=== PATIENT | male | born 1940 | race Asian ===

== ENCOUNTER 2017-08-31 07:20 | Emergency (ER) | payer MEDICARE, MEDICAID ==
[~2017-08-31] VITALS: Ht 157.5 cm; Wt 59.1 kg
[~2017-08-31 07:20] MED LIST: ASPI-825 PO; ATOR10TA84 PO; NORVASC PO; TOPROL PO
[2017-08-31] MEDS ORDERED: TRIA60LO12 TP (07:36)
[2017-08-31] MEDS ORDERED: DIPH25CA48 PO (07:36)
[2017-08-31] MEDS ORDERED: AMLO-512 PO (07:36)
[2017-08-31] MEDS ORDERED: METF500T4 PO (07:36)
[2017-08-31] MEDS ORDERED: FAMO20 PO (07:36)
[2017-08-31] MEDS ORDERED: VALS160T2 PO (07:36)
[2017-08-31] MEDS ORDERED: LORA10TA7 PO (07:36)
[2017-08-31] MEDS ORDERED: CLOP75 PO (07:36)
[2017-08-31] MEDS ORDERED: METO25 PO (07:36)
[2017-08-31 08:28] LABS: BASOPHILS % (AUTO) 0.3 % (0.0-2.0); EOSINOPHILS % (AUTO) 4.9 % (1.0-6.0); HEMATOCRIT 43.1 % (41-53); HEMOGLOBIN 14.9 g/dL (13.5-17.5); LYMPHOCYTES # (AUTO) 0.9 K/uL (1.0-4.8); MEAN CORPUSCULAR HEMOGLOBIN 30.8 pg (26.0-34.0); MEAN CORPUSCULAR HGB CONC 34.5 G/dL (31.0-37.0); MEAN CORPUSCULAR VOLUME 89 fL (80-100); MONOCYTES # (AUTO) 0.4 K/uL (0.1-1.0); MONOCYTES % (AUTO) 8.3 % (2.0-9.0); NEUTROPHILS # (AUTO) 3.7 K/uL (1.8-7.7); NEUTROPHILS % (AUTO) 69.5 % (40.0-70.0); PLATELET COUNT (AUTO) 267 K/uL (150-450); RED BLOOD CELL COUNT(AUTO) 4.82 MIL/uL (4.50-5.90); RED CELL DISTRIBUTION WIDTH 14.2 % (11.5-14.5)
[2017-08-31 08:38] LABS: ANION GAP 9 mmol/L (8-16); CALCIUM, TOTAL 8.6 mg/dL (8.8-10.5); CARBON DIOXIDE 28 mmol/L (22-29); CHLORIDE 95 mmol/L (98-107); CREATININE 1.13 mg/dL (0.60-1.30); GLOMERULAR FILTR. RATE CALC > 60 mL/min (>60); GLUCOSE,RANDOM 121 mg/dL (70-110); SODIUM SERUM 132 mmol/L (136-145); UREA NITROGEN, BLOOD 8 mg/dL (7-18)
[2017-08-31 08:44] LABS: ALANINE AMINOTRANSFERASE 46 U/L (12-78); ALBUMIN 4.2 g/dL (3.4-5.0); ALKALINE PHOSPHATASE 65 U/L (46-116); ASPARTATE AMINOTRANSFERASE 27 U/L (15-37); BILIRUBIN,TOTAL 0.5 mg/dL (0.1-1.0); TOTAL PROTEIN, SERUM 7.9 g/dL (6.4-8.2)
[2017-08-31 09:40] VITALS: BP 176/60
== END 2017-08-31 09:41 | disposition home or self-care (01) ==
LOC: EMS 07:22
DX: L50.9 Urticaria, unspecified (principal); K21.9 Gastro-esophageal reflux disease without esophagitis; I10 Essential (primary) hypertension; Z79.82 Long term (current) use of aspirin
CPT/HCPCS: 99284

== ENCOUNTER 2017-09-22 04:00 | Inpatient (IN) | payer MEDICARE, MEDICAID ==
[~2017-09-22] VITALS: Ht 160 cm; Wt 61.5 kg
[~2017-09-22 04:00] MED LIST changes: +AMLO-512 PO; +CLOP75 PO; +DIPH25CA48 PO; +FAMO20 PO; +LORA10TA7 PO; +METF500T6 PO; +METO25 PO; -NORVASC PO; -TOPROL PO; +TRIA60LO12 TP; +VALS160T2 PO
[2017-09-22] MEDS ORDERED: SODIUM CHLORIDE 0.9% 1,000 ML IV ONE ×2 (05:00→06:00)
[2017-09-22] MEDS ORDERED: KETOROLAC TROMETHAMINE 30 MG/ML VIAL IVP ONE (05:00)
[2017-09-22] MEDS ORDERED: METOCLOPRAMIDE HCL 5 MG/ML 2 ML VIAL IVP ONE (05:00)
[2017-09-22 05:37] LABS: ALANINE AMINOTRANSFERASE 43 U/L (12-78); ALKALINE PHOSPHATASE 82 U/L (46-116); ANION GAP 9 mmol/L (8-16); ASPARTATE AMINOTRANSFERASE 25 U/L (15-37); BILIRUBIN,TOTAL 0.7 mg/dL (0.1-1.0); CALCIUM, TOTAL 8.2 mg/dL (8.8-10.5); CARBON DIOXIDE 25 mmol/L (22-29); CHLORIDE 86 mmol/L (98-107); CREATININE 0.96 mg/dL (0.60-1.30); GLOMERULAR FILTR. RATE CALC > 60 mL/min (>60); GLUCOSE,RANDOM 148 mg/dL (70-110); POTASSIUM 4.1 mmol/L (3.5-5.1); TOTAL PROTEIN, SERUM 7.2 g/dL (6.4-8.2); UREA NITROGEN, BLOOD 7 mg/dL (7-18)
[2017-09-22 05:39] LABS: BASOPHILS % (AUTO) 0.3 % (0.0-2.0); EOSINOPHILS % (AUTO) 0.1 % (1.0-6.0); HEMATOCRIT 39.9 % (41-53); HEMOGLOBIN 14.2 g/dL (13.5-17.5); LYMPHOCYTES # (AUTO) 0.5 K/uL (1.0-4.8); LYMPHOCYTES % (AUTO) 5.3 % (22.0-44.0); MEAN CORPUSCULAR HEMOGLOBIN 31.4 pg (26.0-34.0); MEAN CORPUSCULAR HGB CONC 35.7 G/dL (31.0-37.0); MEAN CORPUSCULAR VOLUME 88 fL (80-100); MONOCYTES # (AUTO) 0.7 K/uL (0.1-1.0); MONOCYTES % (AUTO) 7.5 % (2.0-9.0); NEUTROPHILS # (AUTO) 8.3 K/uL (1.8-7.7); PLATELET COUNT (AUTO) 234 K/uL (150-450); RED BLOOD CELL COUNT(AUTO) 4.54 MIL/uL (4.50-5.90); RED CELL DISTRIBUTION WIDTH 13.7 % (11.5-14.5)
[2017-09-22 05:41] LABS: SODIUM SERUM 120 mmol/L (136-145)
[2017-09-22 05:42] LABS: B-TYPE NATRIURETIC PEPTIDE 18 pg/mL (0-100)
[2017-09-22 05:44] LABS: NEUTROPHILS % (AUTO) 86.8 % (40.0-70.0)
[2017-09-22] MEDS ORDERED: ONDANSETRON HCL 4 MG/2 ML VIAL IVP ONE (06:00)
[2017-09-22 06:53] LABS: APPEARANCE,URINE CLEAR (CLEAR)
[2017-09-22 06:54] LABS: BILIRUBIN,URINE NEGATIVE (NEGATIVE); GLUCOSE, URINE (UA) NEGATIVE (NEGATIVE); KETONES,URINE NEGATIVE (NEGATIVE); LEUKOCYTE ESTERASE ,URINE NEGATIVE (NEGATIVE); NITRATE,URINE NEGATIVE (NEGATIVE); OCCULT BLOOD,URINE TRACE-LYSE (NEGATIVE); PH,URINE 7.5 (5.0-8.0); PROTEIN,URINE NEGATIVE (NEGATIVE); UROBILINOGEN,URINE 0.2 mg/dL (<=1.0)
[2017-09-22 07:26] LABS: BACTERIA,URINE Rare /HPF (None Seen); SQUAMOUS EPITHELIAL CELL,UR Few /LPF (None Seen); WBC,URINE None Seen /HPF (0-5)
[2017-09-22 09:07] VITALS: BP 158/79
[2017-09-22] MEDS ORDERED: DiphenhydrAMINE HCL 25 MG CAPSULE PO PRN (09:45)
[2017-09-22 11:00] VITALS: BP 143/63
[2017-09-22 12:12] LABS: ANION GAP 7 mmol/L (8-16); CALCIUM, TOTAL 7.7 mg/dL (8.8-10.5); CARBON DIOXIDE 26 mmol/L (22-29); CHLORIDE 89 mmol/L (98-107); CREATININE 0.89 mg/dL (0.60-1.30); GLOMERULAR FILTR. RATE CALC > 60 mL/min (>60); GLUCOSE,RANDOM 124 mg/dL (70-110); POTASSIUM 4.2 mmol/L (3.5-5.1); UREA NITROGEN, BLOOD 5 mg/dL (7-18)
[2017-09-22] MEDS: SODIUM CHLORIDE 1 GM TABLET PO SCH ×3 (12:15→23:40)
[2017-09-22 12:17] LABS: SODIUM SERUM 122 mmol/L (136-145)
[2017-09-22 12:39] LABS: FREE T4 (FREE THYROXINE) 1.04 ng/dL (0.76-1.46); OSMOLALITY 257 mOS/kg (270-310); THYROID STIMULATING HORMONE 1.29 uIU/mL (0.36-3.74)
[2017-09-22 15:00] VITALS: BP 145/74
[2017-09-22 15:40] LABS: CREATININE,URINE RANDOM 76.6 mg/dL (30.0-125.0)
[2017-09-22 19:02] LABS: ANION GAP 9 mmol/L (8-16); CALCIUM, TOTAL 7.9 mg/dL (8.8-10.5); CARBON DIOXIDE 24 mmol/L (22-29); CHLORIDE 92 mmol/L (98-107); CREATININE 0.83 mg/dL (0.60-1.30); GLOMERULAR FILTR. RATE CALC > 60 mL/min (>60); GLUCOSE,RANDOM 133 mg/dL (70-110); POTASSIUM 3.9 mmol/L (3.5-5.1); SODIUM SERUM 125 mmol/L (136-145); UREA NITROGEN, BLOOD 7 mg/dL (7-18)
[2017-09-22 19:03] LABS: FREE T4 (FREE THYROXINE) 1.08 ng/dL (0.76-1.46); THYROID STIMULATING HORMONE 1.32 uIU/mL (0.36-3.74)
[2017-09-22 19:55] VITALS: BP 143/68
[2017-09-22] MEDS: METOPROLOL TARTRATE 25 MG TABLET PO SCH (20:52)
[2017-09-22 23:20] VITALS: BP 118/54
[2017-09-23 03:35] VITALS: BP 135/59
[2017-09-23] MEDS: SODIUM CHLORIDE 1 GM TABLET PO SCH ×4 (06:02→23:24)
[2017-09-23 06:17] LABS: ANION GAP 6 mmol/L (8-16); CARBON DIOXIDE 27 mmol/L (22-29); CHLORIDE 96 mmol/L (98-107); CREATININE 0.93 mg/dL (0.60-1.30); GLOMERULAR FILTR. RATE CALC > 60 mL/min (>60); GLUCOSE,RANDOM 97 mg/dL (70-110); POTASSIUM 3.9 mmol/L (3.5-5.1); SODIUM SERUM 129 mmol/L (136-145); UREA NITROGEN, BLOOD 9 mg/dL (7-18)
[2017-09-23 07:02] VITALS: BP 132/65
[2017-09-23] MEDS: METOPROLOL TARTRATE 25 MG TABLET PO SCH ×2 (07:51→20:07)
[2017-09-23] MEDS: VALSARTAN 160 MG TABLET PO SCH (07:51)
[2017-09-23] MEDS: LORATADINE 10 MG TABLET PO SCH (07:51)
[2017-09-23] MEDS: MetFORMIN HCL 500 MG TABLET PO SCH (07:51)
[2017-09-23] MEDS: ASPIRIN 81 MG CHEWABLE TABLET PO SCH (07:51)
[2017-09-23] MEDS: ATORVASTATIN CALCIUM 10 MG TABLET PO SCH (07:51)
[2017-09-23] MEDS: CLOPIDOGREL BISULFATE 75 MG TABLET PO SCH (07:52)
[2017-09-23] MEDS: AmLODIPine BESYLATE 10 MG TABLET PO SCH (07:52)
[2017-09-23] MEDS: FAMOTIDINE 20 MG TABLET PO SCH (07:52)
[2017-09-23 12:00] VITALS: BP 135/63
[2017-09-23 15:22] VITALS: BP 151/69
[2017-09-23 19:00] VITALS: BP 132/67
[2017-09-23 21:02] LABS: GLUCOMETER DEV NAME(LOC) 6N 2D; GLUCOSE,POINT OF CARE 100 MG/DL (70-110)
[2017-09-23 23:20] VITALS: BP 129/53
[2017-09-24 04:53] VITALS: BP 144/62
[2017-09-24] MEDS: SODIUM CHLORIDE 1 GM TABLET PO SCH (04:56)
[2017-09-24 07:21] VITALS: BP 129/56
[2017-09-24 07:55] LABS: ANION GAP 8 mmol/L (8-16); CARBON DIOXIDE 25 mmol/L (22-29); CHLORIDE 100 mmol/L (98-107); CREATININE 0.88 mg/dL (0.60-1.30); GLOMERULAR FILTR. RATE CALC > 60 mL/min (>60); GLUCOSE,RANDOM 116 mg/dL (70-110); POTASSIUM 3.8 mmol/L (3.5-5.1); SODIUM SERUM 133 mmol/L (136-145); UREA NITROGEN, BLOOD 10 mg/dL (7-18)
[2017-09-24] MEDS: MetFORMIN HCL 500 MG TABLET PO SCH (09:06)
[2017-09-24] MEDS: CLOPIDOGREL BISULFATE 75 MG TABLET PO SCH (09:06)
[2017-09-24] MEDS: ASPIRIN 81 MG CHEWABLE TABLET PO SCH (09:06)
[2017-09-24] MEDS: METOPROLOL TARTRATE 25 MG TABLET PO SCH (09:06)
[2017-09-24] MEDS: LORATADINE 10 MG TABLET PO SCH (09:06)
[2017-09-24] MEDS: AmLODIPine BESYLATE 10 MG TABLET PO SCH (09:06)
[2017-09-24] MEDS: FAMOTIDINE 20 MG TABLET PO SCH (09:06)
[2017-09-24] MEDS: VALSARTAN 160 MG TABLET PO SCH (09:06)
[2017-09-24] MEDS: ATORVASTATIN CALCIUM 10 MG TABLET PO SCH (09:06)
== END 2017-09-24 11:45 | disposition home or self-care (01) | DRG 645 ==
LOC: EMS 04:01 → 6N 08:01
PROVIDERS: ADMIT Hospitalist; ATTEND Hospitalist
DX: E22.2 Syndrome of inappropriate secretion of antidiuretic hormone (principal); E11.9 Type 2 diabetes mellitus without complications; K21.9 Gastro-esophageal reflux disease without esophagitis; I25.10 Atherosclerotic heart disease of native coronary artery without angina pectoris; E78.5 Hyperlipidemia, unspecified; I10 Essential (primary) hypertension; G43.909 Migraine, unspecified, not intractable, without status migrainosus; Z83.3 Family history of diabetes mellitus; Z82.49 Family history of ischemic heart disease and other diseases of the circulatory system; Z95.5 Presence of coronary angioplasty implant and graft
CPT/HCPCS: 70450; 82570; 83930; 83935; 84300; 84439; 84443; 93005; 96374; 96375; 99285; J1885; J2405; J2765; J7030

== ENCOUNTER 2017-11-19 14:06 | Inpatient (IN) | payer MEDICARE, MEDICAID ==
[~2017-11-19] VITALS: Ht 157.5 cm; Wt 59.8 kg
[2017-11-19 15:51] LABS: BASOPHILS % (AUTO) 0.4 % (0.0-2.0); EOSINOPHILS % (AUTO) 0.1 % (1.0-6.0); HEMATOCRIT 41.2 % (41-53); HEMOGLOBIN 14.5 g/dL (13.5-17.5); LYMPHOCYTES # (AUTO) 1.1 K/uL (1.0-4.8); MEAN CORPUSCULAR HEMOGLOBIN 31.2 pg (26.0-34.0); MEAN CORPUSCULAR HGB CONC 35.1 G/dL (31.0-37.0); MEAN CORPUSCULAR VOLUME 89 fL (80-100); MONOCYTES # (AUTO) 0.6 K/uL (0.1-1.0); MONOCYTES % (AUTO) 7.5 % (2.0-9.0); NEUTROPHILS # (AUTO) 5.8 K/uL (1.8-7.7); PLATELET COUNT (AUTO) 295 K/uL (150-450); RED BLOOD CELL COUNT(AUTO) 4.63 MIL/uL (4.50-5.90); RED CELL DISTRIBUTION WIDTH 13.7 % (11.5-14.5)
[2017-11-19 16:00] LABS: ANION GAP 8 mmol/L (8-16); CALCIUM, TOTAL 8.9 mg/dL (8.8-10.5); CARBON DIOXIDE 25 mmol/L (22-29); CHLORIDE 93 mmol/L (98-107); CREATININE 0.91 mg/dL (0.60-1.30); GLOMERULAR FILTR. RATE CALC > 60 mL/min (>60); GLUCOSE,RANDOM 123 mg/dL (70-110); SODIUM SERUM 126 mmol/L (136-145); UREA NITROGEN, BLOOD 5 mg/dL (7-18)
[2017-11-19 16:04] LABS: ALANINE AMINOTRANSFERASE 36 U/L (12-78); ALBUMIN 4.3 g/dL (3.4-5.0); ALKALINE PHOSPHATASE 86 U/L (46-116); ASPARTATE AMINOTRANSFERASE 22 U/L (15-37); BILIRUBIN,TOTAL 0.5 mg/dL (0.1-1.0); TOTAL PROTEIN, SERUM 7.6 g/dL (6.4-8.2)
[2017-11-19 16:23] LABS: PLATELET MORPHOLOGY COMMENT NORMAL
[2017-11-19] MEDS ORDERED: 0.9% SODIUM CHLORIDE 10 ML SYRINGE IVP PRN (19:00)
[2017-11-19] MEDS ORDERED: ONDANSETRON HCL 4 MG/2 ML VIAL IVP PRN (19:00)
[2017-11-19] MEDS ORDERED: ACETAMINOPHEN 325 MG TABLET PO PRN (19:00)
[2017-11-19 22:02] VITALS: BP 179/78
[2017-11-20] MEDS ORDERED: INSULIN LISPRO 100 UNITS/ML SQ PRN
[2017-11-20] MEDS ORDERED: DEXTROSE 50%-WATER 25 GM/50 ML SYRINGE IVP PRN
[2017-11-20] MEDS ORDERED: ONDANSETRON HCL 4 MG/2 ML VIAL IVP PRN
[2017-11-20] MEDS ORDERED: DiphenhydrAMINE HCL 25 MG CAPSULE PO PRN
[2017-11-20 05:00] VITALS: BP 146/74
[2017-11-20 06:13] LABS: GLUCOMETER DEV NAME(LOC) 6N 2D; GLUCOSE,POINT OF CARE 110 MG/DL (70-110)
[2017-11-20 06:36] LABS: BASOPHILS % (AUTO) 1.3 % (0.0-2.0); EOSINOPHILS % (AUTO) 1.7 % (1.0-6.0); HEMATOCRIT 37.9 % (41-53); HEMOGLOBIN 13.7 g/dL (13.5-17.5); LYMPHOCYTES # (AUTO) 0.9 K/uL (1.0-4.8); LYMPHOCYTES % (AUTO) 20.2 % (22.0-44.0); MEAN CORPUSCULAR HGB CONC 36.3 G/dL (31.0-37.0); MEAN CORPUSCULAR VOLUME 88 fL (80-100); MONOCYTES # (AUTO) 0.4 K/uL (0.1-1.0); NEUTROPHILS # (AUTO) 3.1 K/uL (1.8-7.7); NEUTROPHILS % (AUTO) 67.8 % (40.0-70.0); PLATELET COUNT (AUTO) 242 K/uL (150-450); RED CELL DISTRIBUTION WIDTH 13.7 % (11.5-14.5)
[2017-11-20 07:01] LABS: HEMOGLOBIN A1C 6.4 % (4.5-6.2)
[2017-11-20 07:37] VITALS: BP 123/55
[2017-11-20 07:51] LABS: ALANINE AMINOTRANSFERASE 35 U/L (12-78); ALBUMIN 3.7 g/dL (3.4-5.0); ALKALINE PHOSPHATASE 71 U/L (46-116); ANION GAP 5 mmol/L (8-16); ASPARTATE AMINOTRANSFERASE 18 U/L (15-37); BILIRUBIN,TOTAL 0.8 mg/dL (0.1-1.0); CALCIUM, TOTAL 8.6 mg/dL (8.8-10.5); CARBON DIOXIDE 27 mmol/L (22-29); CHLORIDE 95 mmol/L (98-107); CHOL/HDL RATIO 2.4 (4.2-7.3); CHOLESTEROL 106 mg/dL (131-200); CREATININE 0.91 mg/dL (0.60-1.30); GLUCOSE,RANDOM 107 mg/dL (70-110); HDL CHOLESTEROL 45 mg/dL (40-60); LDL CHOL (CALC.) 46 mg/dL (0-130); SODIUM SERUM 127 mmol/L (136-145); TOTAL PROTEIN, SERUM 6.6 g/dL (6.4-8.2); TRIGLYCERIDES 73 mg/dL (15-150); UREA NITROGEN, BLOOD 7 mg/dL (7-18)
[2017-11-20 07:59] LABS: GLOMERULAR FILTR. RATE CALC > 60 mL/min (>60)
[2017-11-20] MEDS: MetFORMIN HCL 500 MG TABLET PO SCH (08:26)
[2017-11-20] MEDS: CLOPIDOGREL BISULFATE 75 MG TABLET PO SCH (08:26)
[2017-11-20] MEDS: FAMOTIDINE 20 MG TABLET PO SCH (08:26)
[2017-11-20] MEDS: LORATADINE 10 MG TABLET PO SCH (08:26)
[2017-11-20] MEDS: AmLODIPine BESYLATE 10 MG TABLET PO SCH (08:27)
[2017-11-20] MEDS: VALSARTAN 160 MG TABLET PO SCH (08:27)
[2017-11-20] MEDS: METOPROLOL TARTRATE 25 MG TABLET PO SCH ×2 (08:27→20:02)
[2017-11-20] MEDS: ASPIRIN 81 MG EC TABLET PO SCH (08:27)
[2017-11-20] MEDS: TRIAMCINOLONE 0.025% 60 ML LOTION TP SCH (08:27)
[2017-11-20] MEDS: ATORVASTATIN CALCIUM 10 MG TABLET PO SCH (08:27)
[2017-11-20 11:39] VITALS: BP 130/67
[2017-11-20 12:20] LABS: GLUCOMETER DEV NAME(LOC) 6N 2D; GLUCOSE,POINT OF CARE 119 MG/DL (70-110)
[2017-11-20] MEDS: SODIUM CHLORIDE 1 GM TABLET PO SCH ×3 (14:50→23:12)
[2017-11-20 16:25] VITALS: BP 139/62
[2017-11-20 17:47] LABS: SODIUM,URINE RANDOM 116 mmol/l (20-110)
[2017-11-20 17:49] LABS: GLUCOMETER DEV NAME(LOC) 6N 1E; GLUCOSE,POINT OF CARE 107 MG/DL (70-110)
[2017-11-20 18:03] LABS: OSMOLALITY,URINE 392 mOS/kg (50-1200)
[2017-11-20 20:33] VITALS: BP 131/68
[2017-11-21] VITALS (7 sets, daily range): BP systolic 113–141; BP diastolic 56–76
[2017-11-21 02:00] LABS: APPEARANCE,URINE CLEAR (CLEAR); BILIRUBIN,URINE NEGATIVE (NEGATIVE); GLUCOSE, URINE (UA) NEGATIVE (NEGATIVE); KETONES,URINE NEGATIVE (NEGATIVE); LEUKOCYTE ESTERASE ,URINE NEGATIVE (NEGATIVE); NITRATE,URINE NEGATIVE (NEGATIVE); OCCULT BLOOD,URINE NEGATIVE (NEGATIVE); PH,URINE 6.5 (5.0-8.0); PROTEIN,URINE NEGATIVE (NEGATIVE)
[2017-11-21 02:44] LABS: GLUCOMETER DEV NAME(LOC) 6N 2D; GLUCOSE,POINT OF CARE 93 MG/DL (70-110)
[2017-11-21] MEDS: SODIUM CHLORIDE 1 GM TABLET PO SCH ×3 (06:01→17:24)
[2017-11-21 06:24] LABS: GLUCOMETER DEV NAME(LOC) 6N 1E; GLUCOSE,POINT OF CARE 104 MG/DL (70-110)
[2017-11-21 06:25] LABS: BASOPHILS % (AUTO) 0.9 % (0.0-2.0); EOSINOPHILS % (AUTO) 2.2 % (1.0-6.0); HEMATOCRIT 41.2 % (41-53); HEMOGLOBIN 14.7 g/dL (13.5-17.5); LYMPHOCYTES # (AUTO) 1.3 K/uL (1.0-4.8); LYMPHOCYTES % (AUTO) 23.2 % (22.0-44.0); MEAN CORPUSCULAR HEMOGLOBIN 31.6 pg (26.0-34.0); MEAN CORPUSCULAR HGB CONC 35.6 G/dL (31.0-37.0); MEAN CORPUSCULAR VOLUME 89 fL (80-100); MONOCYTES # (AUTO) 0.6 K/uL (0.1-1.0); NEUTROPHILS # (AUTO) 3.4 K/uL (1.8-7.7); NEUTROPHILS % (AUTO) 62.7 % (40.0-70.0); PLATELET COUNT (AUTO) 264 K/uL (150-450); RED BLOOD CELL COUNT(AUTO) 4.64 MIL/uL (4.50-5.90); RED CELL DISTRIBUTION WIDTH 13.9 % (11.5-14.5)
[2017-11-21 06:30] LABS: HEMOGLOBIN A1C 6.1 % (4.5-6.2)
[2017-11-21 06:56] LABS: ANION GAP 4 mmol/L (8-16); CALCIUM, TOTAL 8.6 mg/dL (8.8-10.5); CARBON DIOXIDE 28 mmol/L (22-29); CHLORIDE 98 mmol/L (98-107); CREATININE 0.94 mg/dL (0.60-1.30); GLOMERULAR FILTR. RATE CALC > 60 mL/min (>60); GLUCOSE,RANDOM 96 mg/dL (70-110); POTASSIUM 4.1 mmol/L (3.5-5.1); SODIUM SERUM 130 mmol/L (136-145); THYROID STIMULATING HORMONE 1.68 uIU/mL (0.36-3.74); UREA NITROGEN, BLOOD 10 mg/dL (7-18)
[2017-11-21] MEDS: MetFORMIN HCL 500 MG TABLET PO SCH (08:25)
[2017-11-21] MEDS: FAMOTIDINE 20 MG TABLET PO SCH (08:25)
[2017-11-21] MEDS: LORATADINE 10 MG TABLET PO SCH (08:25)
[2017-11-21] MEDS: CLOPIDOGREL BISULFATE 75 MG TABLET PO SCH (08:25)
[2017-11-21] MEDS: ATORVASTATIN CALCIUM 10 MG TABLET PO SCH (08:25)
[2017-11-21] MEDS: ASPIRIN 81 MG EC TABLET PO SCH (08:27)
[2017-11-21] MEDS: TRIAMCINOLONE 0.025% 60 ML LOTION TP SCH (08:39)
[2017-11-21] MEDS: VALSARTAN 160 MG TABLET PO SCH (09:00)
[2017-11-21] MEDS: AmLODIPine BESYLATE 10 MG TABLET PO SCH (09:00)
[2017-11-21] MEDS: METOPROLOL TARTRATE 25 MG TABLET PO SCH ×2 (09:00→20:45)
[2017-11-21 12:04] LABS: GLUCOMETER DEV NAME(LOC) 6N 1E; GLUCOSE,POINT OF CARE 97 MG/DL (70-110)
[2017-11-21] MEDS ORDERED: NACL1 PO (14:47)
[2017-11-21 20:24] LABS: GLUCOMETER DEV NAME(LOC) 6N 2D; GLUCOSE,POINT OF CARE 107 MG/DL (70-110)
[2017-11-22] MEDS: SODIUM CHLORIDE 1 GM TABLET PO SCH ×3 (00:06→13:04)
[2017-11-22 01:48] LABS: GLUCOMETER DEV NAME(LOC) 6N 1E; GLUCOSE,POINT OF CARE 95 MG/DL (70-110)
[2017-11-22 04:13] VITALS: BP 129/65
[2017-11-22 07:04] LABS: GLUCOMETER DEV NAME(LOC) 6N 1E; GLUCOSE,POINT OF CARE 84 MG/DL (70-110)
[2017-11-22 07:42] VITALS: BP 131/60
[2017-11-22] MEDS: MetFORMIN HCL 500 MG TABLET PO SCH (08:15)
[2017-11-22] MEDS: LORATADINE 10 MG TABLET PO SCH (08:16)
[2017-11-22] MEDS: AmLODIPine BESYLATE 10 MG TABLET PO SCH (08:16)
[2017-11-22] MEDS: METOPROLOL TARTRATE 25 MG TABLET PO SCH (08:17)
[2017-11-22] MEDS: TRIAMCINOLONE 0.025% 60 ML LOTION TP SCH (08:17)
[2017-11-22] MEDS: ASPIRIN 81 MG EC TABLET PO SCH (08:17)
[2017-11-22] MEDS: ATORVASTATIN CALCIUM 10 MG TABLET PO SCH (08:17)
[2017-11-22] MEDS: CLOPIDOGREL BISULFATE 75 MG TABLET PO SCH (08:17)
[2017-11-22] MEDS: FAMOTIDINE 20 MG TABLET PO SCH (08:17)
[2017-11-22] MEDS: VALSARTAN 160 MG TABLET PO SCH (08:17)
[2017-11-22 10:03] LABS: ANION GAP 5 mmol/L (8-16); CALCIUM, TOTAL 8.6 mg/dL (8.8-10.5); CARBON DIOXIDE 31 mmol/L (22-29); CHLORIDE 100 mmol/L (98-107); CREATININE 1.02 mg/dL (0.60-1.30); GLUCOSE,RANDOM 85 mg/dL (70-110); POTASSIUM 3.6 mmol/L (3.5-5.1); SODIUM SERUM 136 mmol/L (136-145); UREA NITROGEN, BLOOD 14 mg/dL (7-18)
[2017-11-22 10:04] LABS: GLOMERULAR FILTR. RATE CALC > 60 mL/min (>60)
[2017-11-22 11:17] VITALS: BP 136/73
[2017-11-22] MEDS ORDERED: NACL1 PO (12:35)
[2017-11-22 15:18] LABS: GLUCOMETER DEV NAME(LOC) 6N 1E; GLUCOSE,POINT OF CARE 74 MG/DL (70-110)
== END 2017-11-22 13:56 | disposition home or self-care (01) | DRG 645 ==
LOC: EMS 14:07 → 6N 20:30
PROVIDERS: ADMIT Family Medicine; ATTEND Family Medicine
DX: E22.2 Syndrome of inappropriate secretion of antidiuretic hormone (principal); K21.9 Gastro-esophageal reflux disease without esophagitis; I10 Essential (primary) hypertension; G43.909 Migraine, unspecified, not intractable, without status migrainosus; D35.00 Benign neoplasm of unspecified adrenal gland; E78.5 Hyperlipidemia, unspecified; E11.65 Type 2 diabetes mellitus with hyperglycemia; I25.10 Atherosclerotic heart disease of native coronary artery without angina pectoris; Z95.5 Presence of coronary angioplasty implant and graft; Z79.82 Long term (current) use of aspirin; Z79.4 Long term (current) use of insulin; Z79.899 Other long term (current) drug therapy
CPT/HCPCS: 70450; 71250; 83036; 83735; 83935; 84295; 84300; 84443; 99285

== ENCOUNTER 2024-07-04 07:55 | Inpatient (IN) | payer MEDICARE, MEDICAID ==
[~2024-07-04] VITALS: Ht 157.5 cm; Wt 59.0 kg
[~2024-07-04 07:55] MED LIST changes: +AMLO-258 PO; -AMLO-512 PO; +ATOR10TA PO; -ATOR10TA84 PO; -CLOP75 PO; +CLOP75TA60 PO; +DIPH-1237 PO; -DIPH25CA48 PO; +METF-1211 PO; -METF500T6 PO; +SODI100067 PO
[2024-07-04] MEDS ORDERED: AMLO10TA55 PO (08:03)
[2024-07-04] MEDS ORDERED: HYDR12.54 PO (08:03)
[2024-07-04] MEDS ORDERED: LOSA100T59 PO (08:03)
[2024-07-04] MEDS ORDERED: ATOR20TA65 PO (08:03)
[2024-07-04] MEDS ORDERED: SITA50 PO (08:03)
[2024-07-04] MEDS ORDERED: CLOP75TA32 PO (08:03)
[2024-07-04 08:19] LABS: APPEARANCE,URINE HAZY (CLEAR); BILIRUBIN,URINE NEGATIVE (NEGATIVE); COLOR,URINE LIGHT YELLOW (YELLOW); GLUCOSE, URINE (UA) NEGATIVE (NEGATIVE); KETONES,URINE NEGATIVE (NEGATIVE); LEUKOCYTE ESTERASE ,URINE MODERATE (NEGATIVE); NITRATE,URINE NEGATIVE (NEGATIVE); OCCULT BLOOD,URINE LARGE (NEGATIVE); PH,URINE 6.5 (5.0-8.0); PROTEIN,URINE TRACE mg/dL (NEGATIVE); SPECIFIC GRAVITIY, URINE 1.011 (1.003-1.030); UROBILINOGEN,URINE <=1.0 mg/dL (<=1.0)
[2024-07-04 08:32] LABS: BACTERIA,URINE Few /HPF (None Seen); RBC,URINE >100 /HPF (0-2); SQUAMOUS EPITHELIAL CELL,UR Few /LPF (None Seen)
[2024-07-04 09:18] LABS: BASOPHILS % (AUTO) 0.9 % (0.0-2.0); EOSINOPHILS % (AUTO) 0.4 % (1.0-6.0); HEMATOCRIT 40.4 % (41-53); HEMOGLOBIN 13.9 g/dL (13.5-17.5); LYMPHOCYTES % (AUTO) 12.9 % (22.0-44.0); MEAN CORPUSCULAR HEMOGLOBIN 32.3 pg (26.0-34.0); MEAN CORPUSCULAR HGB CONC 34.4 G/dL (31.0-37.0); MEAN CORPUSCULAR VOLUME 94 fL (80-100); MONOCYTES # (AUTO) 0.6 K/uL (0.1-1.0); MONOCYTES % (AUTO) 8.1 % (2.0-9.0); NEUTROPHILS # (AUTO) 5.8 K/uL (1.8-7.7); NEUTROPHILS % (AUTO) 77.7 % (40.0-70.0); PLATELET COUNT (AUTO) 251 K/uL (150-450); RED CELL DISTRIBUTION WIDTH 13.8 % (11.5-14.5); WHITE BLOOD COUNT (AUTO) 7.5 K/uL (4.5-11.0)
[2024-07-04 09:28] LABS: CALCIUM, TOTAL 8.8 mg/dL (8.8-10.5); CREATININE 1.5 mg/dL (0.60-1.30); POTASSIUM 3.8 mmol/L (3.5-5.1)
[2024-07-04 09:33] LABS: PROTHROMBIN TIME 10.4 SEC (9.4-11.6)
[2024-07-04] MEDS: SODIUM CHLORIDE 0.9% 1,000 ML IV ONE (11:52)
[2024-07-04] MEDS ORDERED: HYDROCODONE/ACETAMINOPHEN 5-325 MG TABLET PO PRN (13:30)
[2024-07-04] MEDS ORDERED: ACETAMINOPHEN 325 MG TABLET PO PRN (13:30)
[2024-07-04] MEDS ORDERED: ONDANSETRON HCL 4 MG/2 ML VIAL IVP PRN (13:30)
[2024-07-04] MEDS ORDERED: MAGNESIUM HYDROXIDE SUSPENSION 30 ML UDCUP PO PRN (13:30)
[2024-07-04] MEDS ORDERED: ZOLPIDEM TARTRATE 5 MG TABLET PO PRN (13:30)
[2024-07-04] MEDS ORDERED: MORPHINE SULFATE 2 MG/ML SYRINGE IVP PRN (13:30)
[2024-07-04] MEDS ORDERED: BISACODYL 10 MG RECTAL RECTAL SUPPOSITORY PR PRN (13:30)
[2024-07-04] MEDS: *CLINICAL-LEVOFLOXACIN IVPB DOSING CLINICAL ONE (13:40)
[2024-07-04] MEDS: LEVOFLOXACIN 500 MG/D5% WATER 100 ML IV ONE (14:28)
[2024-07-04 15:47] VITALS: BP 135/73; PULSE 71; RESP 18; TEMP 98.5; O2SAT 96
[2024-07-04] MEDS: DOCUSATE SODIUM 100 MG CAPSULE PO SCH (19:55)
[2024-07-04 20:00] VITALS: BP 139/60; PULSE 62; RESP 18; TEMP 97.9; O2SAT 99
[2024-07-05 05:28] VITALS: BP 98/53; PULSE 67; RESP 18; TEMP 97.6; O2SAT 99
[2024-07-05 07:44] VITALS: BP 131/101; PULSE 81; RESP 20; TEMP 98.4; O2SAT 100
[2024-07-05] MEDS: PANTOPRAZOLE SODIUM 40 MG DR TABLET PO SCH (08:28)
[2024-07-05] MEDS: LEVOFLOXACIN 250 MG/D5% WATER 50 ML IV SCH (14:14)
[2024-07-05 16:29] VITALS: BP 121/58; PULSE 75; RESP 20; TEMP 97.9; O2SAT 98
[2024-07-05 19:34] VITALS: BP 107/60; PULSE 64; RESP 18; TEMP 97.6; O2SAT 99
[2024-07-06 04:46] VITALS: BP 136/74; PULSE 83; RESP 18; TEMP 97.8; O2SAT 100
[2024-07-06 07:13] LABS: BASOPHILS % (AUTO) 0.6 % (0.0-2.0); EOSINOPHILS % (AUTO) 1.7 % (1.0-6.0); HEMATOCRIT 38.5 % (41-53); HEMOGLOBIN 13.3 g/dL (13.5-17.5); LYMPHOCYTES # (AUTO) 0.9 K/uL (1.0-4.8); MEAN CORPUSCULAR HEMOGLOBIN 32.4 pg (26.0-34.0); MEAN CORPUSCULAR HGB CONC 34.5 G/dL (31.0-37.0); MEAN CORPUSCULAR VOLUME 94 fL (80-100); MONOCYTES # (AUTO) 0.8 K/uL (0.1-1.0); MONOCYTES % (AUTO) 13.1 % (2.0-9.0); NEUTROPHILS # (AUTO) 4.3 K/uL (1.8-7.7); NEUTROPHILS % (AUTO) 69.6 % (40.0-70.0); PLATELET COUNT (AUTO) 233 K/uL (150-450); RED CELL DISTRIBUTION WIDTH 13.6 % (11.5-14.5); WHITE BLOOD COUNT (AUTO) 6.1 K/uL (4.5-11.0)
[2024-07-06 07:16] LABS: CALCIUM, TOTAL 9.1 mg/dL (8.8-10.5); CREATININE 1.33 mg/dL (0.60-1.30)
[2024-07-06 08:34] VITALS: BP 126/60; PULSE 73; RESP 20; TEMP 97.7; O2SAT 100
[2024-07-06] MEDS: LEVOFLOXACIN 750 MG/D5% WATER 150 ML IV SCH (13:31)
[2024-07-06 16:42] VITALS: BP 131/68; PULSE 82; RESP 20; TEMP 98.2; O2SAT 99
[2024-07-06] MEDS: TAMSULOSIN HCL 0.4 MG CAPSULE PO SCH (20:01)
[2024-07-06 20:04] VITALS: BP 134/60; PULSE 85; RESP 18; TEMP 98.1; O2SAT 99
[2024-07-07 04:39] VITALS: BP 120/51; PULSE 82; RESP 18; TEMP 98.1; O2SAT 98
[2024-07-07 06:44] LABS: BASOPHILS % (AUTO) 0.6 % (0.0-2.0); EOSINOPHILS % (AUTO) 2.3 % (1.0-6.0); HEMATOCRIT 35.1 % (41-53); HEMOGLOBIN 12.4 g/dL (13.5-17.5); LYMPHOCYTES # (AUTO) 1.4 K/uL (1.0-4.8); LYMPHOCYTES % (AUTO) 24.4 % (22.0-44.0); MEAN CORPUSCULAR HEMOGLOBIN 32.6 pg (26.0-34.0); MEAN CORPUSCULAR HGB CONC 35.2 G/dL (31.0-37.0); MEAN CORPUSCULAR VOLUME 93 fL (80-100); MONOCYTES # (AUTO) 0.8 K/uL (0.1-1.0); MONOCYTES % (AUTO) 14.4 % (2.0-9.0); NEUTROPHILS # (AUTO) 3.4 K/uL (1.8-7.7); NEUTROPHILS % (AUTO) 58.3 % (40.0-70.0); PLATELET COUNT (AUTO) 224 K/uL (150-450); RED BLOOD CELL COUNT(AUTO) 3.79 MIL/uL (4.50-5.90); RED CELL DISTRIBUTION WIDTH 13.2 % (11.5-14.5); WHITE BLOOD COUNT (AUTO) 5.9 K/uL (4.5-11.0)
[2024-07-07 07:03] LABS: CALCIUM, TOTAL 8.5 mg/dL (8.8-10.5); CREATININE 1.42 mg/dL (0.60-1.30); POTASSIUM 4.2 mmol/L (3.5-5.1)
[2024-07-07 08:03] VITALS: BP 125/73; PULSE 101; RESP 18; TEMP 98; O2SAT 98
[2024-07-07] MEDS ORDERED: TAMS0.4C94 PO (15:02)
[2024-07-07 16:36] VITALS: BP 143/87; PULSE 106; RESP 19; TEMP 97.7; O2SAT 100
== END 2024-07-07 18:25 | disposition home or self-care (01) | DRG 683 ==
LOC: EMS 07:58 → EDH 13:44 → 4E 15:10
PROVIDERS: ADMIT Internal Medicine; ATTEND Internal Medicine
DX: N17.9 Acute kidney failure, unspecified (principal); E87.1 Hypo-osmolality and hyponatremia; J98.11 Atelectasis; N40.1 Benign prostatic hyperplasia with lower urinary tract symptoms; I10 Essential (primary) hypertension; N39.41 Urge incontinence; E11.9 Type 2 diabetes mellitus without complications; K21.9 Gastro-esophageal reflux disease without esophagitis; K40.90 Unilateral inguinal hernia, without obstruction or gangrene, not specified as recurrent; K44.9 Diaphragmatic hernia without obstruction or gangrene; K42.9 Umbilical hernia without obstruction or gangrene; R31.0 Gross hematuria; N28.1 Cyst of kidney, acquired; E78.5 Hyperlipidemia, unspecified; I25.2 Old myocardial infarction; Z95.5 Presence of coronary angioplasty implant and graft
CPT/HCPCS: 71045; 74176; 76770; 80048; 81001; 84153; 85025; 85610; 87086; 93005; 96361; 96365; 99285; G0378; J1956; 36415-L1; 36415-TC